=== PATIENT | male | born 1985 | race Caucasian/White ===

== ENCOUNTER 2019-04-10 23:45 | Emergency (ER) | payer OTHER ==
[~2019-04-10] VITALS: Ht 165.1 cm; Wt 72.6 kg
[2019-04-10 23:53] VITALS: Ht 165.1 cm; Wt 72.6 kg
[2019-04-11 00:45] VITALS: BP 141/94
== END 2019-04-11 00:45 | disposition other institution (70) ==
LOC: ED 23:45
DX: Z02.89 Encounter for other administrative examinations (principal)

== ENCOUNTER 2019-04-30 14:19 | Emergency (ER) | payer SELFPAY ==
[~2019-04-30] VITALS: Ht 167.6 cm; Wt 75.3 kg
[2019-04-30 14:23] VITALS: Ht 167.6 cm; Wt 75.3 kg
[2019-04-30 16:14] VITALS: BP 146/92
== END 2019-04-30 16:14 | disposition home or self-care (01) ==
LOC: ED 14:19
DX: S52.612D Displaced fracture of left ulna styloid process, subsequent encounter for closed fracture with routine healing (principal); Z88.0 Allergy status to penicillin; X58.XXXD Exposure to other specified factors, subsequent encounter